=== PATIENT | male | born 1995 | race African-American/Black ===

== ENCOUNTER 2016-09-04 11:33 | Emergency (ER) | payer SELFPAY ==
[~2016-09-04] VITALS: Ht 185.4 cm; Wt 75.0 kg
[~2016-09-04 11:33] MED LIST: POLY3.5O RIGHT EYE
[2016-09-04 11:35] VITALS: BP 157/79; PULSE 79; RESP 18; TEMP 98.3; O2SAT 98
[2016-09-04] MEDS ORDERED: ORPHENADRINE INJ 60 MG/2 ML AMP IM ONE (12:15)
[2016-09-04] MEDS ORDERED: KETOROLAC TROMETHAMINE 60 MG/2 ML (IM) VIAL IM ONE (12:15)
[2016-09-04] MEDS ORDERED: TETANUS/DIPHTHERIA TOXOID ADULT 0.5 ML VIAL IM ONE (12:15)
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
[2016-09-04] MEDS ORDERED: ROBA750T PO (12:59)
[2016-09-04] MEDS ORDERED: DICL50TA PO (12:59)
== END 2016-09-04 13:25 | disposition home or self-care (01) ==
LOC: NEPE 11:33
DX: S46.911A Strain of unspecified muscle, fascia and tendon at shoulder and upper arm level, right arm, initial encounter (principal); S50.311A Abrasion of right elbow, initial encounter; R07.89 Other chest pain; F17.200 Nicotine dependence, unspecified, uncomplicated; Z23 Encounter for immunization; Y04.0XXA Assault by unarmed brawl or fight, initial encounter
CPT/HCPCS: 71010; 73030; 90471; 90714; 96372; 99284; J1885; J2360

== ENCOUNTER 2017-05-03 12:43 | Emergency (ER) | payer SELFPAY ==
[~2017-05-03 12:43] MED LIST changes: +DICL50TA PO; -POLY3.5O RIGHT EYE; +ROBA750T PO
[2017-05-03 12:44] VITALS: BP 146/75; PULSE 66; RESP 14; TEMP 98.9; O2SAT 99
--- NOTE | 2017-05-03 13:12 | RADRPT ---
EXAM DATE/TIME: 05/03/2017 13:04 [facility] COMPARISON: CHEST SINGLE AP, September 04, 2016, 12:22. INDICATIONS : Chest pain and flu like symptoms. MEDICAL HISTORY : None. SURGICAL HISTORY : None. ENCOUNTER: Initial ACUITY: 2 weeks PAIN SCORE: 6/10 LOCATION: Bilateral chest FINDINGS: PA and lateral views of the chest demonstrate the lungs to be symmetrically aerated without evidence of mass, infiltrate or effusion. The cardiomediastinal contours are unremarkable. Osseous structure s are intact. CONCLUSION: No acute disease. Bernard Tijerina MD on May 03, 2017 at 13:10 Board Certified Radiologist. This report was verified electronically.
[2017-05-03 13:41] LABS: AUTOMATED NEUTROPHIL # 1.2 TH/MM3 (1.8-7.7); BASOPHIL % 0.5 % (0.0-2.0); EOSINOPHIL # 0.1 TH/MM3 (0-0.4); EOSINOPHIL % 3.3 % (0.0-4.0); HEMATOCRIT 44.4 % (39.0-51.0); HEMOGLOBIN 14.6 GM/DL (13.0-17.0); LYMPHOCYTE # 1.4 TH/MM3 (1.0-4.8); MEAN CELL VOLUME 89.6 FL (80.0-100.0); MEAN CORPUSCULAR HEMOGLOBIN 29.5 PG (27.0-34.0); MEAN PLATELET VOLUME 7.7 FL (7.0-11.0); MONOCYTE # 0.4 TH/MM3 (0-0.9); NEUT % 38.2 % (16.0-70.0); PLATELET COUNT 222 TH/MM3 (150-450); RED BLOOD COUNT 4.95 MIL/MM3 (4.50-5.90); RED CELL DISTRIBUTION WIDTH 14.4 % (11.6-17.2); WHITE BLOOD COUNT 3.1 TH/MM3 (4.0-11.0)
[2017-05-03 14:06] LABS: BICARBONATE 26.3 MEQ/L (21.0-32.0); CALCIUM 8.9 MG/DL (8.5-10.1); CREATININE 0.89 MG/DL (0.60-1.30)
[2017-05-03] MEDS ORDERED: BENZ100 PO (15:05)
[2017-05-03] MEDS ORDERED: BROMSYP PO (15:05)
--- NOTE | 2017-05-03 15:09 | PD ---
HPI Chief Complaint: Cold / Flu Symptoms Time Seen by Provider: 14:53 Travel History International Travel<30 days: No Contact w/Intl Traveler<30days: No Traveled to known affect area: No History of Present Illness HPI 22-year-old male presents for evaluation. For 2 weeks he has had generalized myalgias, sore throat, cough, congestion. Symptoms are [id number], no aggravating or relieving factors. Denies abdominal pain, vomiting, diarrhea, rash or recent travel. He has no other complaints at this time. [facility] Social History Alcohol Use: Yes (occas. mix drinks , beer) Tobacco Use: Yes (1/2 -1 ppd cigs) Substance Use: Yes (states smoke "Pot") Allergies-Medications (Allergen,Severity, Reaction): Coded Allergies: No Known Allergies (Unverified , 08/18/15) Reported Meds & Prescriptions Reported Meds & Active Scripts Active Tessalon Perles (Benzonatate) 100 Mg Cap 100 Mg PO TID PRN Bromfed DM Liq (Urfwsiebaszeqlv-Jwqwayzyoexkcyx-XU Liq) 30-2-10 Mg/5 Ml Syrp 5 Ml PO Q6H PRN Review of Systems Except as stated in HPI: all other systems reviewed are Neg Physical Exam Narrative GENERAL: Well-developed well-nourished male in no acute distress SKIN: Warm and dry. HEAD: Atraumatic. Normocephalic. EYES: Pupils equal and round. No scleral icterus. No injection or drainage. ENT: No nasal bleeding or discharge. Mucous membranes pink and moist. NECK: Trachea midline. No JVD. CARDIOVASCULAR: Regular rate and rhythm. No murmur appreciated. RESPIRATORY: No accessory muscle use. Clear to auscultation. Breath sounds equal bilaterally. Data Data Last Documented VS Vital Signs Date Time Temp Pulse Resp B/P (MAP) Pulse Ox O2 Delivery O2 Flow Rate FiO2 05/03/17 12:44 98.9 66 14 146/75 (98) 99 Orders Orders Chest, Pa & Lat (05/03/17 ) Influenzae A/B Antigen (05/03/17 12:50) Complete Blood Count With Diff (05/03/17 12:50) Basic Metabolic Panel (Bmp) (05/03/17 12:50) Labs Laboratory Tests Test 05/03/17 13:00 White Blood Count 3.1 TH/MM3 Red Blood Count 4.95 MIL/MM3 Hemoglobin 14.6 GM/DL Hematocrit 44.4 % Mean Corpuscular Volume 89.6 FL Mean Corpuscular Hemoglobin 29.5 PG Mean Corpuscular Hemoglobin Concent 33.0 % Red Cell Distribution Width 14.4 % Platelet Count 222 TH/MM3 Mean Platelet Volume 7.7 FL Neutrophils (%) (Auto) 38.2 % Lymphocytes (%) (Auto) 45.0 % Monocytes (%) (Auto) 13.0 % Eosinophils (%) (Auto) 3.3 % Basophils (%) (Auto) 0.5 % Neutrophils # (Auto) 1.2 TH/MM3 Lymphocytes # (Auto) 1.4 TH/MM3 Monocytes # (Auto) 0.4 TH/MM3 Eosinophils # (Auto) 0.1 TH/MM3 Basophils # (Auto) 0.0 TH/MM3 CBC Comment DIFF FINAL Differential Comment Blood Urea Nitrogen 6 MG/DL Creatinine 0.89 MG/DL Random Glucose 112 MG/DL Calcium Level 8.9 MG/DL Sodium Level 140 MEQ/L Potassium Level 3.9 MEQ/L Chloride Level 106 MEQ/L Carbon Dioxide Level 26.3 MEQ/L Anion Gap 8 MEQ/L Estimat Glomerular Filtration Rate 127 ML/MIN MDM Medical Decision Making Medical Screen Exam Complete: Yes Emergency Medical Condition: Yes Medical Record Reviewed: Yes Differential Diagnosis Influenza, bronchitis, pneumonia, sinusitis Narrative Course Lab work was obtained in triage revealing positive influenza antigen test. Chest x-ray is normal. The patient's symptoms have been ongoing for 2 weeks and therefore Tamiflu would not be helpful. He will be discharged with cough suppressants and nasal decongestants medications. Diagnosis Primary Impression: Influenza A Departure Forms: Tests/Procedures, Work Release Enter return to work date: May 08, 2017 Additional Instructions: Medication as prescribed. Stay well hydrated well-nourished, get plenty of rest. Follow-up with primary care physician. Return for any emergent medical conditions. Med/Other Pt SpecificInfo: Prescription(s) given Scripts Benzonatate (Tessalon Perles) 100 Mg Cap 100 MG PO TID Y for COUGH, #30 CAP 0 Refills Prov: Kade Perry MD 05/03/17 Tzbmbjhkjpvngkm-Ppxjvjkoigvjnph-VM Liq (Bromfed DM Liq) 30-2-10 Mg/5 Ml Syrp 5 ML PO Q6H Y for COUGH AND/OR COLD SYMPTOMS, #1 BOTTLE 0 Refills Prov: Kade Perry MD 05/03/17 Disposition: 01 DISCHARGE HOME Condition: Stable Anthony Botello May 03, 2017 15:09
== END 2017-05-03 15:16 | disposition home or self-care (01) ==
LOC: NEPK 12:43
DX: J09.X2 Influenza due to identified novel influenza A virus with other respiratory manifestations (principal); F17.210 Nicotine dependence, cigarettes, uncomplicated
CPT/HCPCS: 71046; 80048; 85025; 87804; 99284